=== PATIENT | female | born 1985 | race Caucasian/White ===

== ENCOUNTER 2018-06-02 12:32 | Emergency (ER) | END 2018-06-02 13:14 | disposition home or self-care (01) | LOC: MADERS 12:32 | DX: A08.4 Viral intestinal infection, unspecified (principal) | CPT/HCPCS: 99283 ==

== ENCOUNTER 2018-07-08 11:47 | Emergency (ER) | payer SELFPAY | END 2018-07-08 13:08 | disposition home or self-care (01) | LOC: MADERS 11:47 | DX: J02.9 Acute pharyngitis, unspecified (principal); B34.9 Viral infection, unspecified | CPT/HCPCS: 87081; 87430; 99283 ==

== ENCOUNTER 2020-08-29 14:02 | Emergency (ER) | payer SELFPAY | END 2020-08-29 14:50 | disposition home or self-care (01) | LOC: MADERS 14:02 | DX: S91.115D Laceration without foreign body of left lesser toe(s) without damage to nail, subsequent encounter (principal); X58.XXXD Exposure to other specified factors, subsequent encounter ==

== ENCOUNTER 2021-01-20 01:14 | Emergency (ER) | payer SELFPAY ==
[2021-01-20] MEDS ORDERED: Ibuprofen 800 MG TAB ONE (01:29)
== END 2021-01-20 01:34 | disposition home or self-care (01) ==
LOC: MADERS 01:14
DX: T63.2X1A Toxic effect of venom of scorpion, accidental (unintentional), initial encounter (principal); J45.909 Unspecified asthma, uncomplicated
CPT/HCPCS: 99282